=== PATIENT | male | born 1990 | race Caucasian/White ===

== ENCOUNTER → 2016-07-14 | Outpatient (CLI) | payer OTHER | LOC: RAD 15:03 | DX: M54.2 Cervicalgia (principal); M54.12 Radiculopathy, cervical region; M41.84 Other forms of scoliosis, thoracic region | CPT/HCPCS: 72040 ==

== ENCOUNTER 2020-07-10 22:14 | Emergency (ER) | payer OTHER ==
[~2020-07-10 22:14] MED LIST: CARAFATE1 GM PO; HEARTBURN PREVE20 MG PO; NORCO 5-325 TA1 EACH PO; PROTONIX 40 MG40 M1 PO; PROTONIX40 MG PO; TOPAMAX25 MG PO; ZOFRAN ODT 4 MG4 MG SL; [UNRECOGNIZED DRUG - OTHER] PO
[2020-07-11 00:23] LABS: BUN/CREATININE RATIO 22 (0-10)
[2020-07-11 00:30] LABS: HEMOGLOBIN 15.8 gm/dl (14.0-17.5); RED BLOOD COUNT 5.29 M/UL (4.20-5.50); WHITE BLOOD COUNT 6.8 K/UL (4.5-11.0)
[2020-07-11] MEDS ORDERED: CEPHALEXIN500 MG PO (03:23)
== END 2020-07-11 03:50 | disposition home or self-care (01) ==
LOC: ER1 22:14
PROVIDERS: Physician Assistant Medical
DX: N39.0 Urinary tract infection, site not specified (principal); R51.9 Headache, unspecified; R07.9 Chest pain, unspecified; Z79.899 Other long term (current) drug therapy
CPT/HCPCS: 70450; 71045; 80053; 81001; 82550; 82553; 83874; 84439; 84443; 84484; 85025; 85379; 93005; 99285

== ENCOUNTER → 2020-10-18 | Outpatient (CLI) | payer OTHER ==
[~2020-10-18] MED LIST changes: +CEPHALEXIN500 MG PO
[2020-10-18 14:28] LABS: HEMOGLOBIN 16.1 gm/dl (14.0-17.5); RED BLOOD COUNT 5.14 M/UL (4.20-5.50); WHITE BLOOD COUNT 4.9 K/UL (4.5-11.0)
[2020-10-18 14:43] LABS: BUN/CREATININE RATIO 12 (0-10)
[2020-10-19 09:14] LABS: HCV AB <0.1 (0.0-0.9); VITAMIN D, 25-HYDROXY 33.9 ng/mL (30.0-100.0)
[2020-10-19 12:14] LABS: HBSAG SCREEN Negative (Negative); HEP B CORE AB, TOT Negative (Negative); RHEUMATOID ARTHRITIS FACTOR <10.0 IU/mL (0.0-13.9)
[2020-10-24 00:06] LABS: QUANTIFERON MITOGEN VALUE 0.79 IU/mL (.); QUANTIFERON-TB GOLD PLUS Negative (Negative)
== END ==
LOC: LAB 13:01
PROVIDERS: Nurse Practitioner Family
DX: Z11.59 Encounter for screening for other viral diseases (principal); D89.9 Disorder involving the immune mechanism, unspecified; M25.50 Pain in unspecified joint; R76.8 Other specified abnormal immunological findings in serum; K59.09 Other constipation; M79.10 Myalgia, unspecified site; Z79.899 Other long term (current) drug therapy
CPT/HCPCS: 36415; 80053; 81001; 82550; 82570; 82728; 83520; 84156; 85025; 85652; 86140; 86200; 86431; 86704; 86803; 87340